=== PATIENT | female | born 1960 | race Caucasian/White ===

== ENCOUNTER 2016-10-26 11:59 | Inpatient (IN) | payer OTHER ==
[~2016-10-26] VITALS: Ht 162.6 cm; Wt 67.0 kg
[~2016-10-26 11:59] MED LIST: ADVIL200 MG PO; PRILOSEC20 MG PO
[2016-10-26 13:18] VITALS: BP 122/79
[2016-10-26 20:15] VITALS: BP 100/57
[2016-10-26 22:55] LABS: HEMATOCRIT 34.9 % (36.0-46.0); MCH 30.5 PG (29.0-34.0); MCHC 32.4 G/DL (30.0-36.0); MCV 94.3 FL (83-99); MEAN PLAT.VOLUME 9.7 uM^3 (9.5-12.4); PLATELET COUNT 272 K/uL (156-360); RBC DIS.WIDTH-CV 13.2 % (11.8-14.6); RBC DIS.WIDTH-SD 43.3 % (39-53)
[2016-10-26 23:03] LABS: CHLORIDE 106 mEq/L (99-109); POTASSIUM 4.5 mEq/L (3.7-5.4); SODIUM 138 mEq/L (136-147)
[2016-10-26 23:05] LABS: GLUCOSE 201 mg/dL (70-99)
[2016-10-26 23:06] LABS: ANION GAP 10 MEQ/L (2-14)
[2016-10-26 23:09] LABS: GFR ESTIMATE (CALCULATED) > 59 mL/min/
[2016-10-26 23:10] LABS: UREA NITROGEN (BUN) 14 mg/dL (9-23)
[2016-10-26 23:25] VITALS: BP 101/57
[2016-10-27 03:55] VITALS: BP 98/61
[2016-10-27 07:39] VITALS: BP 100/70
[2016-10-27 07:42] LABS: HEMATOCRIT 33.2 % (36.0-46.0); MCH 31.2 PG (29.0-34.0); MCHC 32.5 G/DL (30.0-36.0); MEAN PLAT.VOLUME 10.3 uM^3 (9.5-12.4); PLATELET COUNT 275 K/uL (156-360); RBC DIS.WIDTH-CV 13.6 % (11.8-14.6); RBC DIS.WIDTH-SD 47.9 % (39-53); RED BLOOD COUNT 3.46 M/uL (3.80-5.20)
[2016-10-27 08:09] LABS: ANION GAP 7 MEQ/L (2-14); CHLORIDE 102 MEQ/L (99-109); GFR ESTIMATE (CALCULATED) > 59 mL/min/; GLUCOSE 124 mg/dL (70-99); POTASSIUM 4.7 MEQ/L (3.7-5.4); SAMPLE HEMOLYSIS CHECK 0; SAMPLE ICTERIC CHECK 0; SAMPLE LIPEMIA CHECK 0; SODIUM 136 MEQ/L (136-147); UREA NITROGEN (BUN) 14 mg/dL (9-23)
[2016-10-27] MEDS ORDERED: TRAMADOL HCL50 MG PO (09:46)
[2016-10-27 12:06] VITALS: BP 108/55
[2016-10-27 16:04] VITALS: BP 101/56
[2016-10-27 19:59] VITALS: BP 121/64
[2016-10-28] VITALS: BP 108/60
[2016-10-28 04:11] VITALS: BP 119/70
[2016-10-28 06:30] VITALS: BP 116/70
[2016-10-28 06:57] LABS: MCH 30.3 PG (29.0-34.0); MCHC 32.1 G/DL (30.0-36.0); MCV 94.3 FL (83-99); MEAN PLAT.VOLUME 10.3 uM^3 (9.5-12.4); PLATELET COUNT 259 K/uL (156-360); RBC DIS.WIDTH-CV 13.5 % (11.8-14.6); RBC DIS.WIDTH-SD 46.8 % (39-53)
[2016-10-28 07:00] LABS: WHITE BLOOD COUNT 9.2 K/uL (4.1-10.2)
[2016-10-28 07:10] LABS: ANION GAP 8 MEQ/L (2-14); CHLORIDE 102 MEQ/L (99-109); GFR ESTIMATE (CALCULATED) > 59 mL/min/; SAMPLE HEMOLYSIS CHECK 0; SAMPLE ICTERIC CHECK 0; SAMPLE LIPEMIA CHECK 0; SODIUM 138 MEQ/L (136-147); UREA NITROGEN (BUN) 12 mg/dL (9-23)
[2016-10-28 07:11] LABS: GLUCOSE 89 mg/dL (70-99)
== END 2016-10-28 10:00 | disposition home or self-care (01) | DRG 737 ==
LOC: 2SOUTH → 2EAST 20:01
PROVIDERS: Obstetrics & Gynecology Gynecologic Oncology
DX: C56.2 Malignant neoplasm of left ovary (principal); C79.89 Secondary malignant neoplasm of other specified sites; C77.5 Secondary and unspecified malignant neoplasm of intrapelvic lymph nodes; E31.9 Polyglandular dysfunction, unspecified; F17.210 Nicotine dependence, cigarettes, uncomplicated
CPT/HCPCS: 36415; 80048; 85027; 86850; 86900; 86901; 86920; 88305; 88307; J0131; J0690; J1100; J1170; J1650; J1885; J2270; J2405; J2710; J2765; J3010

== ENCOUNTER 2016-12-26 06:22 | Emergency (ER) | payer OTHER ==
[~2016-12-26] VITALS: Ht 162.6 cm; Wt 62.7 kg
[~2016-12-26 06:22] MED LIST changes: +TRAMADOL HCL50 MG PO
[2016-12-26 06:52] LABS: EOSINOPHIL (%) 1.1 % (0-5); EOSINOPHIL COUNT 0.1 K/uL (0-0.3); HEMATOCRIT 36.2 % (36.0-46.0); IMMATURE GRANULOCYTE (%) 0.5 % (0.0-0.7); IMMATURE GRANULOCYTE COUNT 0.4 K/uL; LYMPHOCYTE COUNT 4.9 K/uL (1.0-2.8); MCH 30.8 PG (29.0-34.0); MCHC 32.9 G/DL (30.0-36.0); MCV 93.8 FL (83-99); MEAN PLAT.VOLUME 9.6 uM^3 (9.5-12.4); MONOCYTE (%) 4.4 % (3-12); MONOCYTE COUNT 0.4 K/uL (0-0.8); NEUTROPHIL (%) 38.1 % (45-76); NEUTROPHIL COUNT 3.3 K/uL (1.8-6.4); PLATELET COUNT 242 K/uL (156-360); RBC DIS.WIDTH-CV 13.6 % (11.8-14.6); RBC DIS.WIDTH-SD 45.1 % (39-53); RED BLOOD COUNT 3.86 M/uL (3.80-5.20); WHITE BLOOD COUNT 8.7 K/uL (4.1-10.2)
[2016-12-26 07:01] LABS: CHLORIDE 110 mEq/L (99-109); POTASSIUM 4.2 mEq/L (3.7-5.4); SODIUM 144 mEq/L (136-147)
[2016-12-26 07:03] LABS: GLUCOSE 87 mg/dL (70-99)
[2016-12-26 07:04] LABS: ANION GAP 7 MEQ/L (2-14)
[2016-12-26 07:05] LABS: D-DIMER ELISA 0.62 mg/L FEU (< 0.57); PROTHROMBIN TIME 10.2 (9.2-11.2)
[2016-12-26 07:07] LABS: GFR ESTIMATE (CALCULATED) > 59 mL/min/
[2016-12-26 07:08] LABS: UREA NITROGEN (BUN) 16 mg/dL (9-23)
[2016-12-26 07:12] LABS: TROP-I INTERPRETATION NEGATIVE; TROPONIN-I < 0.01 ng/mL (0.0-0.30)
[2016-12-26 11:39] VITALS: BP 130/90
[2016-12-31] MEDS ORDERED: NICODERM CQ1 EAC2 TD (11:21)
== END 2016-12-26 11:57 | disposition home or self-care (01) ==
LOC: EME → EDBD 06:22 → EME 11:57
PROVIDERS: Emergency Medicine
DX: R55 Syncope and collapse (principal)
CPT/HCPCS: 71010; 71275; 80048; 84484; 85025; 85379; 85610; 85730; 93005; 99281; 99285; J7030

== ENCOUNTER → 2017-08-02 | Outpatient (CLI) | payer OTHER ==
[~2017-08-02] MED LIST changes: +ALEVE220 MG PO; +AMOX TR-K CLV1 EAC1 PO; +COMPAZINE10 MG PO; +FLONASE16 G1 BOTH NARES; +NICODERM CQ1 EAC2 TD; +OXAYDO5 MG PO; +ZOFRAN8 MG PO
== END | disposition home or self-care (01) ==
LOC: AMB 08:49
DX: Z45.2 Encounter for adjustment and management of vascular access device (principal); I87.8 Other specified disorders of veins

== ENCOUNTER 2018-04-03 09:54 | Day surgery (SDC) | payer OTHER ==
[~2018-04-03] VITALS: Ht 162.6 cm; Wt 72.6 kg
[2018-04-03 10:28] VITALS: BP 125/78
[2018-04-03 14:26] VITALS: BP 129/84
[2018-04-03 14:54] VITALS: BP 127/66
== END 2018-04-03 15:05 | disposition home or self-care (01) ==
LOC: SDC 09:54
PROC: 0JBD0ZZ Excision of Right Upper Arm Subcutaneous Tissue and Fascia, Open Approach (ICD-10-PCS; principal; 2018-04-03)
DX: D17.21 Benign lipomatous neoplasm of skin and subcutaneous tissue of right arm (principal); R45.1 Restlessness and agitation; Z85.43 Personal history of malignant neoplasm of ovary; F17.200 Nicotine dependence, unspecified, uncomplicated; M75.101 Unspecified rotator cuff tear or rupture of right shoulder, not specified as traumatic; G40.909 Epilepsy, unspecified, not intractable, without status epilepticus; F31.9 Bipolar disorder, unspecified; Z92.21 Personal history of antineoplastic chemotherapy
CPT/HCPCS: 88304; J0690; J2250; J3010